=== PATIENT | female | born 1975 | race Caucasian/White ===

== ENCOUNTER 2020-03-06 19:32 | Emergency (ER) | payer MEDICAID ==
[~2020-03-06] VITALS: Ht 157.5 cm; Wt 57.0 kg
[2020-03-06] MEDS ORDERED: ONDANSETRON ODT 4 MG PO ONE (20:00)
[2020-03-06] MEDS ORDERED: HYDROmorphone 1 MG/ML, 1ML INJ IM PRN (20:00)
[2020-03-06] MEDS ORDERED: ONDANSETRON ODT 4 MG ONE (20:10)
[2020-03-06] MEDS ORDERED: HYDROmorphone 1 MG/ML, 1ML INJ ONE (20:10)
[2020-03-06 21:42] VITALS: BP 129/73
== END 2020-03-06 21:50 | disposition home or self-care (01) ==
LOC: ED 21:31
DX: S16.1XXA Strain of muscle, fascia and tendon at neck level, initial encounter (principal); S06.9X1A Unspecified intracranial injury with loss of consciousness of 30 minutes or less, initial encounter; F17.210 Nicotine dependence, cigarettes, uncomplicated; W01.0XXA Fall on same level from slipping, tripping and stumbling without subsequent striking against object, initial encounter; Y93.89 Activity, other specified; Y92.098 Other place in other non-institutional residence as the place of occurrence of the external cause; Y99.8 Other external cause status
CPT/HCPCS: 70450; 72125; 93005; 96372; 99285; J1170; Q0162